=== PATIENT | male | born 1980 | race Caucasian/White ===

== ENCOUNTER 2019-02-08 10:32 | Emergency (ER) | payer MEDICAID ==
[~2019-02-08] VITALS: Ht 177.8 cm; Wt 127.0 kg
[2019-02-08 10:32] VITALS: BP_SYST 124
[2019-02-08 11:45] VITALS: BP_SYST 124
== END 2019-02-08 11:45 | disposition home or self-care (01) ==
LOC: SED 10:32
DX: H66.91 Otitis media, unspecified, right ear (principal); J02.9 Acute pharyngitis, unspecified; R51 Headache; E11.9 Type 2 diabetes mellitus without complications; R03.0 Elevated blood-pressure reading, without diagnosis of hypertension; Z90.89 Acquired absence of other organs
CPT/HCPCS: 99283

== ENCOUNTER 2019-06-09 04:27 | Emergency (ER) | payer SELFPAY ==
[~2019-06-09] VITALS: Ht 177.8 cm; Wt 131.5 kg
[2019-06-09 04:44] VITALS: BP_SYST 137
--- NOTE | 2019-06-09 04:44 | NUR ---
Patient to ER [facility] for evaluation. Side rails up. Report given to ROSMERY Sweeney.
--- NOTE | 2019-06-09 05:25 | NUR ---
Pt oserved lwbs.
--- NOTE | 2019-06-09 05:30 | NUR ---
Looked for patient in ER bathroom, hallway, lobby, and entrance, patient not found. MD aware.
--- NOTE | 2019-06-09 05:35 | NUR ---
Looked for patient in ER bathroom, hallway, lobby, and entrance, patient not found. MD aware.
== END 2019-06-09 05:35 | disposition left against medical advice (07) ==
LOC: SED 04:27
DX: J02.9 Acute pharyngitis, unspecified (principal); Z53.21 Procedure and treatment not carried out due to patient leaving prior to being seen by health care provider

== ENCOUNTER 2019-06-28 11:20 | Emergency (ER) | payer SELFPAY ==
[~2019-06-28] VITALS: Ht 177.8 cm; Wt 131.5 kg
[2019-06-28 11:20] VITALS: BP_SYST 158
--- NOTE | 2019-06-28 11:20 | NUR ---
BROUGHT BACK TO BED #7 AND TRIAGED. REPORT GIVEN TO RABIA
--- NOTE | 2019-06-28 11:59 | NUR ---
MISAEL Noyola at bedside examining patient.
[2019-06-28 12:45] VITALS: BP_SYST 143
--- NOTE | 2019-06-28 12:45 | NUR ---
Patient given written and verbal discharge instructions and verbalizes understanding. ER MD Noyola discussed with patient the results and treatment provided. Patient in stable condition. ID arm band removed. IV catheter removed intact and dressing applied, no active bleeding. Rx of Azithromycin, Tessalon Perles, Ibuprofen given. Patient educated on pain management and to follow up with PMD. Pain Scale 0. Opportunity for questions provided and answered. Medication side effect fact sheet provided.
== END 2019-06-28 12:45 | disposition home or self-care (01) ==
LOC: SED 11:20
DX: S63.616A Unspecified sprain of right little finger, initial encounter (principal); J02.9 Acute pharyngitis, unspecified; E11.9 Type 2 diabetes mellitus without complications; W20.8XXA Other cause of strike by thrown, projected or falling object, initial encounter; Y93.89 Activity, other specified; Y92.89 Other specified places as the place of occurrence of the external cause; Y99.8 Other external cause status
CPT/HCPCS: 99283

== ENCOUNTER 2019-07-20 11:41 | Emergency (ER) | payer MEDICAID ==
[~2019-07-20] VITALS: Ht 177.8 cm; Wt 131.5 kg
--- NOTE | 2019-07-20 11:42 | NUR ---
plPatient to ER bed 04 to gown for evaluation. Side rails up.
--- NOTE | 2019-07-20 11:43 | NUR ---
Pt brought by family member , ambulatory , A&Ox4, pt c/o sore throat and dysphagia for couple days, pt states he is taking antibiotics but pain not improving , skin pink and warm, afebrile, no N/V noted, will continue to monitor.
--- NOTE | 2019-07-20 12:00 | NUR ---
ER at bedside examining patient.
[2019-07-20 12:01] VITALS: BP_SYST 150
[2019-07-20 13:48] VITALS: BP_SYST 150
--- NOTE | 2019-07-20 13:49 | NUR ---
Patient given written and verbal discharge instructions and verbalizes understanding. ER MD discussed with patient the results and treatment provided. Patient in stable condition. ID arm band removed. Rx of Sudafed and Benadryl given. Patient educated on pain management and to follow up with PMD. Pain Scale 0/10 Opportunity for questions provided and answered. Medication side effect fact sheet provided.
== END 2019-07-20 13:49 | disposition home or self-care (01) ==
LOC: SED 11:41
DX: J30.9 Allergic rhinitis, unspecified (principal); E11.9 Type 2 diabetes mellitus without complications
CPT/HCPCS: 99282

== ENCOUNTER 2019-08-19 11:07 | Emergency (ER) | payer MEDICAID ==
[~2019-08-19] VITALS: Ht 177.8 cm; Wt 131.5 kg
[2019-08-19 11:13] VITALS: BP_SYST 156
== END 2019-08-19 12:59 | disposition left against medical advice (07) ==
LOC: SED 11:07
DX: R05 Cough (principal); Z53.21 Procedure and treatment not carried out due to patient leaving prior to being seen by health care provider

== ENCOUNTER 2019-10-05 01:08 | Emergency (ER) | payer MEDICAID ==
[~2019-10-05] VITALS: Ht 177.8 cm; Wt 131.5 kg
[2019-10-05 01:16] VITALS: BP_SYST 179
[2019-10-05] MEDS ORDERED: LORazepam 2 MG/ML VIAL IM ONE (01:30)
[2019-10-05 01:51] LABS: BASOPHILS % (AUTO) 0.5 % (0.0-2.0); EOSINOPHILS # (AUTO) 0.4 K/uL (0.0-0.4); EOSINOPHILS % (AUTO) 5.3 % (0.0-4.0); HEMATOCRIT 41.1 % (36-54); HEMOGLOBIN 14.3 g/dL (14.0-18.0); LYMPHOCYTES # (AUTO) 2.4 K/uL (1.0-5.5); MEAN CORPUSCULAR HEMOGLOBIN 29 pg (27-31); MEAN CORPUSCULAR HGB CONC 35 % (32-36); MEAN CORPUSCULAR VOLUME 84 fL (79.0-98.0); MONOCYTES # (AUTO) 0.6 K/uL (0.0-1.0); MONOCYTES % (AUTO) 6.9 % (1.7-9.3); NEUTROPHILS # (AUTO) 4.7 K/uL (1.8-7.7); NEUTROPHILS % (AUTO) 58.3 % (40.0-70.0); PLATELET COUNT (AUTO) 226 K/uL (130-430); RED BLOOD CELL COUNT(AUTO) 4.87 MIL/uL (4.2-6.2); WHITE BLOOD COUNT (AUTO) 8.1 K/uL (4.8-10.8)
[2019-10-05 02:01] LABS: ANION GAP 12 (5-15); CALCIUM 8.2 mg/dL (8.4-11.0); CHLORIDE 97 mmol/L (98-107); CREATININE 1.38 mg/dL (0.55-1.30); GLUCOSE 312 mg/dL (70-99); POTASSIUM 3.8 mmol/L (3.5-5.1); SODIUM SERUM 133 mmol/L (136-145); UREA NITROGEN, BLOOD 21 mg/dL (8-21)
[2019-10-05 02:08] LABS: ALANINE AMINOTRANSFERASE 85 U/L (12-78); ALBUMIN 3.8 g/dL (3.4-4.8); ASPARTATE AMINOTRANSFERASE 34 U/L (10-37); LIPASE 207 U/L (73-393); TOTAL BILIRUBIN 0.4 mg/dL (0.0-1.0)
[2019-10-05 02:10] LABS: GFR AFRICAN AMERICAN 74 mL/min (>90)
[2019-10-05 03:15] VITALS: BP_SYST 153
== END 2019-10-05 03:15 | disposition home or self-care (01) ==
LOC: SED 01:08
DX: R07.9 Chest pain, unspecified (principal); F41.9 Anxiety disorder, unspecified; E78.00 Pure hypercholesterolemia, unspecified
CPT/HCPCS: 36415; 71045; 80053; 83690; 84484; 85025; 85379; 93005; 96372; 99284; J2060

== ENCOUNTER 2020-04-25 03:12 | Emergency (ER) | payer SELFPAY ==
[~2020-04-25] VITALS: Ht 177.8 cm; Wt 128.8 kg
[2020-04-25 03:50] VITALS: BP_SYST 141
--- NOTE | 2020-04-25 03:50 | NUR ---
Patient to ER bed 2 to gown for evaluation. Side rails up.
--- NOTE | 2020-04-25 03:51 | NUR ---
Patient came to ER. C/O Right side pain x today. Patient states "fell and hit the edge of the bed one hour ago." Denies head injury A/O,X4, right side pain, pain rate 10/10.
--- NOTE | 2020-04-25 04:02 | NUR ---
ER at bedside examining patient.
[2020-04-25] MEDS ORDERED: CYCLOBENZAPRINE HCL 10 MG TABLET (FLEXERIL) PO ONE (04:15)
[2020-04-25] MEDS ORDERED: IBUPROFEN 800 MG TABLET PO ONE (04:15)
--- NOTE | 2020-04-25 04:21 | NUR ---
BS 177, Dr. Thompson notified.
--- NOTE | 2020-04-25 04:35 | NUR ---
Patient came back from X-ray room.
[2020-04-25 04:48] LABS: BILIRUBIN,URINE NEGATIVE (NEGATIVE); BLOOD, URINE NEGATIVE (NEGATIVE); CLARITY/URINE CLEAR (CLEAR); COLOR,URINE YELLOW (YELLOW); GLUCOSE,URINE NEGATIVE (NEGATIVE); KETONES,URINE NEGATIVE (NEGATIVE); LEUKOCYTE ESTERASE ,URINE NEGATIVE (NEGATIVE); NITRITE, URINE NEGATIVE (NEGATIVE); PH,URINE 5.5 (5.0-8.0); PROTEIN URINE NEGATIVE (NEGATIVE); UROBILINOGEN,URINE 0.2 (0.2-1.0)
[2020-04-25 05:24] VITALS: BP_SYST 141
--- NOTE | 2020-04-25 05:24 | NUR ---
Patient given written and verbal discharge instructions and verbalizes understanding. ER MD discussed with patient the results and treatment provided. Patient in stable condition. ID arm band removed. Rx of Motrin and Flexeril given. Patient educated on pain management and to follow up with PMD. Pain Scale 2/10. Opportunity for questions provided and answered. Medication side effect fact sheet provided.
== END 2020-04-25 05:24 | disposition home or self-care (01) ==
LOC: SED 03:12
DX: S20.221A Contusion of right back wall of thorax, initial encounter (principal); R07.89 Other chest pain; E11.9 Type 2 diabetes mellitus without complications; Z88.1 Allergy status to other antibiotic agents; W18.39XA Other fall on same level, initial encounter; Y93.01 Activity, walking, marching and hiking; Y92.89 Other specified places as the place of occurrence of the external cause; Y99.8 Other external cause status
CPT/HCPCS: 71045; 71100; 81003; 82962; 99284

== ENCOUNTER 2020-05-21 14:55 | Emergency (ER) | payer MEDICAID ==
[~2020-05-21] VITALS: Ht 177.8 cm; Wt 136.1 kg
[2020-05-21 14:55] VITALS: BP_SYST 148
--- NOTE | 2020-05-21 14:55 | NUR ---
Placed in room 5. Placed on cardiac exercise specialist, blood pressure machine and pulse oximeter. To gown for exam. Side rails up. Report given to ROSMERY Matthews.
--- NOTE | 2020-05-21 15:00 | NUR ---
pt in gurney with side rails up. Alert and oriented. Skin warm and dry. C/O left side upper chest wall pain.
[2020-05-21] MEDS ORDERED: KETOROLAC TROMETHAMINE 30 MG VIAL IVP ONE (15:15)
[2020-05-21 15:40] LABS: BASOPHILS % (AUTO) 0.3 % (0.0-2.0); EOSINOPHILS # (AUTO) 0.4 K/uL (0.0-0.4); EOSINOPHILS % (AUTO) 4.6 % (0.0-4.0); HEMATOCRIT 46.4 % (36-54); HEMOGLOBIN 15.1 g/dL (14.0-18.0); LYMPHOCYTES # (AUTO) 1.6 K/uL (1.0-5.5); LYMPHOCYTES % (AUTO) 17.7 % (20.5-51.5); MEAN CORPUSCULAR HEMOGLOBIN 28 pg (27-31); MEAN CORPUSCULAR HGB CONC 33 % (32-36); MEAN CORPUSCULAR VOLUME 84 fL (79.0-98.0); MONOCYTES # (AUTO) 0.6 K/uL (0.0-1.0); MONOCYTES % (AUTO) 6.5 % (1.7-9.3); NEUTROPHILS # (AUTO) 6.2 K/uL (1.8-7.7); NEUTROPHILS % (AUTO) 70.9 % (40.0-70.0); PLATELET COUNT (AUTO) 256 K/uL (130-430); RED CELL DISTRIBUTION WIDTH 13.7 % (9.0-15.0); WHITE BLOOD COUNT (AUTO) 8.8 K/uL (4.8-10.8)
--- NOTE | 2020-05-21 15:57 | NUR ---
pt medicated with good effect for pain. Cont to be monitored. VSS
[2020-05-21 16:04] LABS: CALCIUM 9.7 mg/dL (8.4-11.0); CREATININE 1.36 mg/dL (0.55-1.30); POTASSIUM 4.5 mmol/L (3.5-5.1)
[2020-05-21 16:10] LABS: ALBUMIN 3.8 g/dL (3.4-4.8); TOTAL BILIRUBIN 0.3 mg/dL (0.0-1.0)
--- NOTE | 2020-05-21 16:20 | NUR ---
pt denies any pain. 0/10
--- NOTE | 2020-05-21 16:27 | NUR ---
Patient given written and verbal discharge instructions and verbalizes understanding. ER MD discussed with patient the results and treatment provided. Patient in stable condition. ID arm band removed. IV catheter removed intact and dressing applied, no active bleeding. Rx of naproxen and tramadol given. Patient educated on pain management and to follow up with PMD. Pain Scale 0/10. Opportunity for questions provided and answered. Medication side effect fact sheet provided.
[2020-05-21 16:28] VITALS: BP_SYST 125
== END 2020-05-21 16:36 | disposition home or self-care (01) ==
LOC: SED 14:55
DX: R07.89 Other chest pain (principal); I10 Essential (primary) hypertension; E11.9 Type 2 diabetes mellitus without complications; Z88.1 Allergy status to other antibiotic agents
CPT/HCPCS: 36415; 71045; 80053; 82550; 83880; 84484; 85025; 93005; 96374; 99285; J1885

== ENCOUNTER 2020-07-23 12:35 | Emergency (ER) | payer SELFPAY ==
[~2020-07-23] VITALS: Ht 167.6 cm; Wt 113.4 kg
[2020-07-23 12:42] VITALS: BP_SYST 162
--- NOTE | 2020-07-23 12:45 | NUR ---
EKG done during triage
[2020-07-23 13:06] LABS: BASOPHILS % (AUTO) 0.4 % (0.0-2.0); EOSINOPHILS # (AUTO) 0.3 K/uL (0.0-0.4); EOSINOPHILS % (AUTO) 4.4 % (0.0-4.0); HEMATOCRIT 41.1 % (36-54); LYMPHOCYTES # (AUTO) 1.4 K/uL (1.0-5.5); LYMPHOCYTES % (AUTO) 22.5 % (20.5-51.5); MEAN CORPUSCULAR HEMOGLOBIN 28 pg (27-31); MEAN CORPUSCULAR HGB CONC 34 % (32-36); MEAN CORPUSCULAR VOLUME 84 fL (79.0-98.0); MONOCYTES # (AUTO) 0.4 K/uL (0.0-1.0); MONOCYTES % (AUTO) 6.7 % (1.7-9.3); NEUTROPHILS # (AUTO) 4.1 K/uL (1.8-7.7); PLATELET COUNT (AUTO) 224 K/uL (130-430); RED BLOOD CELL COUNT(AUTO) 4.92 MIL/uL (4.2-6.2); RED CELL DISTRIBUTION WIDTH 13.9 % (9.0-15.0); WHITE BLOOD COUNT (AUTO) 6.3 K/uL (4.8-10.8)
[2020-07-23 13:20] LABS: CALCIUM 9.5 mg/dL (8.4-11.0); CREATININE 1.38 mg/dL (0.55-1.30); POTASSIUM 5.1 mmol/L (3.5-5.1)
[2020-07-23 13:25] LABS: ALBUMIN 3.8 g/dL (3.4-4.8); TOTAL BILIRUBIN 0.2 mg/dL (0.0-1.0)
--- NOTE | 2020-07-23 13:48 | NUR ---
Placed in room 03 . Placed on panel monitor, blood pressure machine and pulse oximeter. To gown for exam. Side rails up.
--- NOTE | 2020-07-23 13:49 | NUR ---
Pt brought by self, A&Ox4, pt presents to ER with intermittent chest pain since last night, denies cough or SOB, skin pink and warm , respirations even and unlabored, cap refill <3.
--- NOTE | 2020-07-23 13:55 | NUR ---
Dr Deng evaluating patient at bedside
--- NOTE | 2020-07-23 14:00 | NUR ---
x-ray at the bedside
[2020-07-23 14:31] VITALS: BP_SYST 162
--- NOTE | 2020-07-23 14:32 | NUR ---
Patient given written and verbal discharge instructions and verbalizes understanding. ER MD discussed with patient the results and treatment provided. Patient in stable condition. ID arm band removed. Rx of Aspirin given. Patient educated on pain management and to follow up with PMD. Pain Scale 0/10. Opportunity for questions provided and answered. Medication side effect fact sheet provided.
== END 2020-07-23 14:32 | disposition home or self-care (01) ==
LOC: SED 12:35
DX: R07.89 Other chest pain (principal); I10 Essential (primary) hypertension; E11.9 Type 2 diabetes mellitus without complications; Z88.1 Allergy status to other antibiotic agents
CPT/HCPCS: 36415; 71045; 80053; 83690-TC; 84484; 85025; 93005; 99285

== ENCOUNTER 2020-08-07 21:45 | Emergency (ER) | payer SELFPAY ==
[~2020-08-07] VITALS: Ht 177.8 cm; Wt 127.0 kg
[2020-08-07 21:50] VITALS: BP_SYST 160
--- NOTE | 2020-08-07 22:08 | NUR ---
Patient to ER bed 1 to gown for evaluation. Side rails up. Report given to LALO BOTELLO.
--- NOTE | 2020-08-07 22:30 | NUR ---
PT A&O X4 FROM HOME C/O OF SORE THROAT THAT STARTED THIS AFTERNOON. PT STATES HE EXPERIENCES DISCOMFORT WHEN SWALLOWING BUT DENIES DIFFICULTY SWALLOWING. PTS THROAT APPEARS RED AND MILDLY SWOLLEN. PT DENIES COUGH, FEVER, CHILLS, NAUSEA, VOMITING, SOB, MUSCLE/BODY ACHES.
--- NOTE | 2020-08-07 23:10 | NUR ---
ER Dr. GAO at bedside examining patient.
--- NOTE | 2020-08-07 23:24 | NUR ---
STREP SWAB COLLECTED AND SENT TO LAB.
[2020-08-08 00:25] VITALS: BP_SYST 133
--- NOTE | 2020-08-08 00:25 | NUR ---
Patient given written and verbal discharge instructions and verbalizes understanding. ER MD discussed with patient the results and treatment provided. Patient in stable condition. ID arm band removed. nO Rx given. Patient educated on pain management and to follow up with PMD. Pain Scale 2/10. Opportunity for questions provided and answered. Medication side effect fact sheet provided.
== END 2020-08-08 00:25 | disposition home or self-care (01) ==
LOC: SED 21:45
DX: J02.9 Acute pharyngitis, unspecified (principal); I10 Essential (primary) hypertension; E11.9 Type 2 diabetes mellitus without complications; E78.5 Hyperlipidemia, unspecified; Z88.1 Allergy status to other antibiotic agents; Z79.899 Other long term (current) drug therapy
CPT/HCPCS: 36415; 86403; 87081; 96375; 96376; 99283

== ENCOUNTER 2020-08-13 15:12 | Inpatient (IN) | payer SELFPAY ==
[~2020-08-13] VITALS: Ht 177.8 cm; Wt 126.6 kg
--- NOTE | 2020-08-13 15:14 | NUR ---
Patient to ER bed 03 to gown for evaluation. Side rails up.
--- NOTE | 2020-08-13 15:16 | NUR ---
Patient arrived in the ED c/o chest pain that's been on and off for a while. Denied any shortness of breath. Denied any fevers, chills, nausea or vomiting. Patient is alert and oriented x4, respirations even and unlabored, speaking in full sentences, and ambulating with a steady gait. VSS, pain level 7/10. Informed of the approximate wait time. Instructed to notify ED staff for any changes in condition or worsening of symptoms while waiting to be seen by an ED provider. Patient verbalized understanding.
--- NOTE | 2020-08-13 15:20 | NUR ---
ECG done at bedside as ordered by Dr. Wiggins. Patient tolerated the procedure well. ER Physician given copy of EKG for review.
[2020-08-13 15:25] VITALS: BP_SYST 153
--- NOTE | 2020-08-13 15:38 | NUR ---
ER Dr. Jain at bedside examining patient.
[2020-08-13] MEDS ORDERED: MORPHINE 4 MG/ML INJ. SYRINGE IVP ONE (15:48)
[2020-08-13] MEDS ORDERED: NITROGLYCERIN 1 INCH (GM) OINT. TP ONE (15:48)
[2020-08-13 15:58] LABS: BASOPHILS % (AUTO) 0.3 % (0.0-2.0); EOSINOPHILS # (AUTO) 0.4 K/uL (0.0-0.4); EOSINOPHILS % (AUTO) 4.1 % (0.0-4.0); HEMATOCRIT 44.2 % (36-54); HEMOGLOBIN 15.1 g/dL (14.0-18.0); LYMPHOCYTES # (AUTO) 1.5 K/uL (1.0-5.5); LYMPHOCYTES % (AUTO) 16.8 % (20.5-51.5); MEAN CORPUSCULAR HEMOGLOBIN 29 pg (27-31); MEAN CORPUSCULAR HGB CONC 34 % (32-36); MEAN CORPUSCULAR VOLUME 84 fL (79.0-98.0); MONOCYTES # (AUTO) 0.6 K/uL (0.0-1.0); MONOCYTES % (AUTO) 6.4 % (1.7-9.3); NEUTROPHILS # (AUTO) 6.3 K/uL (1.8-7.7); NEUTROPHILS % (AUTO) 72.4 % (40.0-70.0); PLATELET COUNT (AUTO) 263 K/uL (130-430); RED BLOOD CELL COUNT(AUTO) 5.24 MIL/uL (4.2-6.2); RED CELL DISTRIBUTION WIDTH 14.1 % (9.0-15.0); WHITE BLOOD COUNT (AUTO) 8.7 K/uL (4.8-10.8)
[2020-08-13 16:02] LABS: CREATININE 1.44 mg/dL (0.55-1.30); POTASSIUM 4.5 mmol/L (3.5-5.1)
[2020-08-13 16:07] LABS: TOTAL BILIRUBIN 0.2 mg/dL (0.0-1.0)
--- NOTE | 2020-08-13 16:16 | NUR ---
Administered Morphine Sulfate IVP and Nitro transdermal as ordered by Dr. Wiggins. Patient tolerated the medications well. See eMAR for details.
[2020-08-13 16:17] LABS: INR 0.9 (0.80-1.20); PROTHROMBIN TIME 9.4 SECS (9.5-12.5)
--- NOTE | 2020-08-13 16:50 | NUR ---
Patient will be admitted to care of Dr. Thomas. Admitted to telemetry unit. Will go to room 130B. Belongings list completed. Complete and up to date summary report printed. SBAR report to be given at bedside with opportunity for questions.
[2020-08-13] MEDS ORDERED: ZOLPIDEM TARTRATE 5 MG TABLET PO PRN (17:15)
[2020-08-13] MEDS ORDERED: LORazepam 2 MG/ML VIAL IVP PRN (17:15)
[2020-08-13] MEDS ORDERED: ACETAMINOPHEN 325 MG TABLET PO PRN (17:15)
[2020-08-13] MEDS ORDERED: NITROGLYCERIN 0.4 MG TAB.SUBL SL PRN (17:15)
[2020-08-13] MEDS ORDERED: MORPHINE 2 MG/ML INJ. SYRINGE IVP PRN (17:15)
[2020-08-13] MEDS ORDERED: PANTOPRAZOLE SODIUM 40 MG TAB PO ONE (17:30)
--- NOTE | 2020-08-13 18:17 | NUR ---
Patient will be admitted to care of DR. RANDLE. Admitted to TELE unit. Will go to room 119B. Belongings list completed. Complete and up to date summary report printed. SBAR report to be given at bedside with opportunity for questions.
[2020-08-13 18:45] VITALS: BP_SYST 160
--- NOTE | 2020-08-13 19:01 | NUR ---
ADMISSION NOTES. PT CAME FROM [facility] AT 1845, SITUATED IN BED, PT ADMITTED FOR CHEST PAIN UNDER DR RANDLE. VITALS TAKEN, BP IS AND HR ELEVATED. NO C/O OF CHEST PAIN AT THIS TIME. EDUCATED PT ON THE USE OF CALL LIGHT AND TV AND BED CONTROLS. WILL ENDORSE TO NIGHT NURSE.
--- NOTE | 2020-08-13 19:30 | NUR ---
Opening notes Received report. Patient is resting in bed, no signs of distress noted. Breathing even and unlabored on room air. Patient states pain is better, but still has discomfort/numbness to left chest/arm. IV paten and intact, no signs of infiltration noted. Oriented patient to room and call light. Call light with the patient. Safety precautions in place.
--- NOTE | 2020-08-13 19:48 | NUR ---
CLOSING NOTES, ENDORSED TO NIGHT NURSE LILY. PT STABLE.
[2020-08-13 20:00] VITALS: BP_SYST 133
--- NOTE | 2020-08-13 20:00 | NUR ---
Spoke to updated geovany about patient condition and plan of care. verbalized understanding. brought in belongings for patient. Updated patient belongings list.
[2020-08-13] MEDS: NACL 0.9% 1,000 ML IV SCH (20:53)
[2020-08-13] MEDS: METOPROLOL TARTRATE 25 MG TABLET PO SCH (20:54)
[2020-08-13 20:57] VITALS: BP_SYST 133
--- NOTE | 2020-08-13 21:00 | NUR ---
Medications given. Educated the action and side effects of Lopressor. Patient verbalized understanding and tolerated well. No other needs. Call light with the patient. Safety precautions in place.
[2020-08-13 21:01] LABS: BENZODIAZEPINE, URINE POSITIVE (NEG <=150); OPIATE, URINE POSITIVE (NEG <=100); URINE OXYCODONE SCREEN NEGATIVE (NEG <=100); URINE PROPOXYPHENE SCREEN NEGATIVE (NEG <=300)
[2020-08-13 21:02] LABS: BARBITURATE, URINE NEGATIVE (NEG <=200); CANNABINOID, URINE NEGATIVE (NEG <=50); COCAINE, URINE NEGATIVE (NEG <=150); METHAMPHETAMINES SCREEN,URINE NEGATIVE (NEG <=500); PHENCYCLIDINE SCREEN,URINE NEGATIVE (NEG <=25); UR TRICYCLIC ANTIDEPRESSANTS NEGATIVE (NEG <=300); URINE AMPHETAMINE NEGATIVE (NEG <=500); URINE METHADONE NEGATIVE (NEG <=200)
--- NOTE | 2020-08-13 23:30 | NUR ---
RN rounds Patient resting in bed, no signs of distress noted. Breathing even and unlabored. No complaints of chest pain. VSS. No needs. Call light with the patient. Safety precautions in place.
[2020-08-14 00:23] VITALS: BP_SYST 135
--- NOTE | 2020-08-14 02:00 | NUR ---
RN rounds Patient sleeping. No signs of distress noted. Breathing even and unlabored on room air. IVF infusing well. No needs. Call light with the patient. Safety precautions in place.
--- NOTE | 2020-08-14 02:52 | NUR ---
Consultation Paged Reason for Consultation: Chest Pain Was consult called: Y Person who who was notified: Angela Consulting Physician: Dr. Lopez Ordering Physician: Dr. Thomas
[2020-08-14] MEDS: NACL 0.9% 1,000 ML IV SCH (03:15)
--- NOTE | 2020-08-14 04:30 | NUR ---
RN rounds Patient awake and on phone. No signs of distress noted. Breathing even and unlabored on room air. No complaints of chest pain. IVF infusing well. Patient provided with sandwich and pudding. No other needs. Call light with the patient. Safety precautions in place.
[2020-08-14 06:31] LABS: BASOPHILS % (AUTO) 0.5 % (0.0-2.0); EOSINOPHILS # (AUTO) 0.4 K/uL (0.0-0.4); EOSINOPHILS % (AUTO) 5.1 % (0.0-4.0); HEMATOCRIT 40.2 % (36-54); HEMOGLOBIN 13.7 g/dL (14.0-18.0); LYMPHOCYTES # (AUTO) 1.8 K/uL (1.0-5.5); LYMPHOCYTES % (AUTO) 25.8 % (20.5-51.5); MEAN CORPUSCULAR HEMOGLOBIN 29 pg (27-31); MEAN CORPUSCULAR HGB CONC 34 % (32-36); MEAN CORPUSCULAR VOLUME 84 fL (79.0-98.0); MONOCYTES # (AUTO) 0.5 K/uL (0.0-1.0); MONOCYTES % (AUTO) 7.6 % (1.7-9.3); NEUTROPHILS # (AUTO) 4.3 K/uL (1.8-7.7); PLATELET COUNT (AUTO) 239 K/uL (130-430); RED BLOOD CELL COUNT(AUTO) 4.79 MIL/uL (4.2-6.2); RED CELL DISTRIBUTION WIDTH 13.7 % (9.0-15.0); WHITE BLOOD COUNT (AUTO) 7.1 K/uL (4.8-10.8)
[2020-08-14 06:42] LABS: CALCIUM 8.7 mg/dL (8.4-11.0); CREATININE 1.24 mg/dL (0.55-1.30); POTASSIUM 4.2 mmol/L (3.5-5.1)
--- NOTE | 2020-08-14 06:57 | NUR ---
Closing notes Patient is resting in bed, no signs of distress noted. Breathing even and unlabored on room air. Patient states chest discomfort/numbness has been on and off throughout night, but not as bad. IV patent and intact, infusing fluids. All needs met throughout the shift. Call light with the patient. Safety precautions in place. Will endorse care to day shift RN.
[2020-08-14 08:19] VITALS: BP_SYST 144
--- NOTE | 2020-08-14 08:20 | NUR ---
Opening note patient resting in bed, a/ox4, denies pain, no distress, assessment complete, IV line is patent and infusing well, educated patient on plan of care and call light system, he verbalized understanding, bed in lowest position, two side rails up, call light within reach, fall and aspiration precautions in place.
[2020-08-14] MEDS ORDERED: METO50TA7 PO (08:34)
[2020-08-14] MEDS ORDERED: ASPI-1393 PO (08:34)
[2020-08-14] MEDS ORDERED: ATORVASTATIN 20 MG TABLET PO SCH (09:00)
[2020-08-14] MEDS ORDERED: PANTOPRAZOLE SODIUM 40 MG TAB PO SCH (09:00)
[2020-08-14] MEDS ORDERED: ASPIRIN 81 MG TAB.CHEW PO SCH (09:00)
[2020-08-14] MEDS ORDERED: CLOPIDOGREL BISULFATE 75 MG TABLET PO SCH (09:00)
[2020-08-14] MEDS: METOPROLOL TARTRATE 25 MG TABLET PO SCH (09:08)
--- NOTE | 2020-08-14 09:10 | NUR ---
Medications patient resting in bed, awake, denies pain, educated on scheduled medications uses and potential side effects, he verbalized understanding and tolerated well, no other needs at this time, IV line is patent and infusing well, continuing to monitor, bed in lowest position, two side rails up, call light within reach, fall and aspiration precautions in place.
[2020-08-14 10:29] VITALS: BP_SYST 144
--- NOTE | 2020-08-14 10:35 | NUR ---
D/C Patient Patient given medication reconciliation form and D/C instructions. Exit Care provided. Patient verbalized understanding. MD discussed with patient the results and treatment provided. Ambulatory with steady gait for discharge to home. Patient in stable condition, ID band removed. IV catheter removed, intact and dressing applied, no active bleeding. E RX sent by Dr. Thomas for Metoprolol and ASA, patient made aware to bulk picker RX and when to start medication. Patient educated on pain management. All belongings sent with patient.
--- NOTE | 2020-08-14 11:59 | NUR ---
SS notes: GRAPPLER was referred by SS to see patient for self-pay. GRAPPLER attempted to meet with patient at bedside; pt is already discharged.
== END 2020-08-14 10:35 | disposition home or self-care (01) | DRG 205 ==
LOC: SED 15:12 → STU 16:48
PROVIDERS: ADMIT General Practice; ATTEND General Practice
DX: M94.0 Chondrocostal junction syndrome [Tietze] (principal); N17.0 Acute kidney failure with tubular necrosis; Z68.41 Body mass index [BMI] 40.0-44.9, adult; K21.9 Gastro-esophageal reflux disease without esophagitis; R07.89 Other chest pain; E11.9 Type 2 diabetes mellitus without complications; E66.01 Morbid (severe) obesity due to excess calories; F41.9 Anxiety disorder, unspecified; I10 Essential (primary) hypertension; Z20.828 Contact with and (suspected) exposure to other viral communicable diseases; Z90.49 Acquired absence of other specified parts of digestive tract; Z79.84 Long term (current) use of oral hypoglycemic drugs; Z79.899 Other long term (current) drug therapy; Z88.8 Allergy status to other drugs, medicaments and biological substances
CPT/HCPCS: 36415; 71045; 80048; 80053; 80061; 80307; 83735-TC; 83880; 84484; 85025; 85379; 85610-TC; 85730-TC; 93005; 93306; 96374; 99291; G0378; J2270; J7030

== ENCOUNTER 2020-08-28 20:14 | Emergency (ER) | payer SELFPAY ==
[~2020-08-28] VITALS: Ht 177.8 cm; Wt 126.1 kg
[~2020-08-28 20:14] MED LIST: ASPI-1393 PO; METO50TA7 PO
[2020-08-28 20:20] VITALS: BP_SYST 188
[2020-08-28] MEDS: ACETAMINOPHEN 500 MG TABLET PO ONE (21:00)
[2020-08-28 21:10] VITALS: BP_SYST 170
== END 2020-08-28 21:10 | disposition home or self-care (01) ==
LOC: SED 20:14
DX: I10 Essential (primary) hypertension (principal); E11.9 Type 2 diabetes mellitus without complications; Z79.82 Long term (current) use of aspirin; Z88.1 Allergy status to other antibiotic agents
CPT/HCPCS: 99283

== ENCOUNTER 2020-09-01 17:55 | Emergency (ER) | payer SELFPAY ==
[~2020-09-01] VITALS: Ht 177.8 cm; Wt 126.1 kg
[2020-09-01 18:00] VITALS: BP_SYST 158
--- NOTE | 2020-09-01 18:23 | NUR ---
[facility]
--- NOTE | 2020-09-01 18:38 | NUR ---
Patient came from home for evaluation of headache since Wednesday. He reports dizzines, nausea, twitch on left eyebrow.
--- NOTE | 2020-09-01 19:09 | NUR ---
All patient needs endorsed to ROSMERY Mccallum for continuation of care.
--- NOTE | 2020-09-01 19:32 | NUR ---
Called patient at lobby, patient no show at lobby.
== END 2020-09-01 19:32 | disposition left against medical advice (07) ==
LOC: SED 17:55
DX: R51.9 Headache, unspecified (principal); Z53.21 Procedure and treatment not carried out due to patient leaving prior to being seen by health care provider

== ENCOUNTER 2021-03-05 16:28 | Emergency (ER) | payer SELFPAY ==
[~2021-03-05] VITALS: Ht 177.8 cm; Wt 120.2 kg
[2021-03-05 16:28] VITALS: BP_SYST 121
[2021-03-05 17:15] LABS: BASOPHILS % (AUTO) 0.4 % (0.0-2.0); EOSINOPHILS # (AUTO) 0.2 K/uL (0.0-0.4); EOSINOPHILS % (AUTO) 2.1 % (0.0-4.0); HEMATOCRIT 43.9 % (36-54); HEMOGLOBIN 14.9 g/dL (14.0-18.0); LYMPHOCYTES % (AUTO) 21.5 % (20.5-51.5); MEAN CORPUSCULAR HEMOGLOBIN 28 pg (27-31); MEAN CORPUSCULAR HGB CONC 34 % (32-36); MEAN CORPUSCULAR VOLUME 83 fL (79.0-98.0); MONOCYTES # (AUTO) 0.6 K/uL (0.0-1.0); MONOCYTES % (AUTO) 6.5 % (1.7-9.3); NEUTROPHILS # (AUTO) 6.4 K/uL (1.8-7.7); NEUTROPHILS % (AUTO) 69.5 % (40.0-70.0); PLATELET COUNT (AUTO) 227 K/uL (130-430); RED BLOOD CELL COUNT(AUTO) 5.32 MIL/uL (4.2-6.2); RED CELL DISTRIBUTION WIDTH 13.6 % (9.0-15.0); WHITE BLOOD COUNT (AUTO) 9.2 K/uL (4.8-10.8)
[2021-03-05 17:33] LABS: ANION GAP 15 (5-15); CHLORIDE 102 mmol/L (98-107); CREATININE 2.36 mg/dL (0.55-1.30); GLUCOSE 151 mg/dL (70-99); POTASSIUM 3.4 mmol/L (3.5-5.1); SODIUM SERUM 139 mmol/L (136-145); UREA NITROGEN, BLOOD 27 mg/dL (8-21)
[2021-03-05 17:42] LABS: ALANINE AMINOTRANSFERASE 24 U/L (12-78); ALBUMIN 4.2 g/dL (3.4-4.8); ASPARTATE AMINOTRANSFERASE 16 U/L (10-37); GFR AFRICAN AMERICAN 39 mL/min (>90); LIPASE 124 U/L (73-393); TOTAL BILIRUBIN 0.8 mg/dL (0.0-1.0)
[2021-03-05] MEDS: NACL 0.9% 1,000 ML IV ONE (18:12)
[2021-03-05 18:47] VITALS: BP_SYST 115
== END 2021-03-05 18:48 | disposition home or self-care (01) ==
LOC: SED 16:28
DX: E86.0 Dehydration (principal); R00.2 Palpitations; I10 Essential (primary) hypertension; E11.9 Type 2 diabetes mellitus without complications; Z88.1 Allergy status to other antibiotic agents; Z79.82 Long term (current) use of aspirin; Z79.899 Other long term (current) drug therapy
CPT/HCPCS: 36415; 71045; 80053; 83690; 84484; 85025; 85379; 93005; 96360; 99285; J7030

== ENCOUNTER 2021-05-15 13:51 | Emergency (ER) | payer SELFPAY ==
[~2021-05-15] VITALS: Ht 177.8 cm; Wt 113.4 kg
[2021-05-15 13:51] VITALS: BP_SYST 135
== END 2021-05-15 19:40 | disposition left against medical advice (07) ==
LOC: SED 13:51
DX: F41.9 Anxiety disorder, unspecified (principal); Z53.21 Procedure and treatment not carried out due to patient leaving prior to being seen by health care provider
CPT/HCPCS: 71045; 93005

== ENCOUNTER 2021-06-06 13:02 | Emergency (ER) | payer SELFPAY ==
[~2021-06-06] VITALS: Ht 177.8 cm; Wt 113.4 kg
--- NOTE | 2021-06-06 13:16 | NUR ---
Pt triaged and placed in waiting room
[2021-06-06 13:17] VITALS: BP_SYST 147
--- NOTE | 2021-06-06 13:25 | NUR ---
Pt walked in to ER with c/o abdominal pain, 7/10 and bloating x1 week. Denies n/v, last BM this morning. V/S stable, no acute distress noted.
--- NOTE | 2021-06-06 13:39 | NUR ---
MISAEL Olmos examining THE patient.
[2021-06-06] MEDS ORDERED: FAMO40TA7 PO (13:50)
[2021-06-06 13:58] VITALS: BP_SYST 147
--- NOTE | 2021-06-06 14:00 | NUR ---
Patient given written and verbal discharge instructions and verbalizes understanding. ER MD discussed with patient the results and treatment provided. Patient in stable condition. ID arm band removed. Rx of Pepcid given. Patient educated on pain management and to follow up with PMD. Pain Scale 0. Opportunity for questions provided and answered. Medication side effect fact sheet provided.
== END 2021-06-06 14:00 | disposition home or self-care (01) ==
LOC: SED 13:02
DX: K25.9 Gastric ulcer, unspecified as acute or chronic, without hemorrhage or perforation (principal); I10 Essential (primary) hypertension; E11.9 Type 2 diabetes mellitus without complications; E78.00 Pure hypercholesterolemia, unspecified; Z88.1 Allergy status to other antibiotic agents; Z79.899 Other long term (current) drug therapy
CPT/HCPCS: 99283

== ENCOUNTER 2021-07-11 01:39 | Emergency (ER) | payer SELFPAY ==
[~2021-07-11] VITALS: Ht 177.8 cm; Wt 113.4 kg
[~2021-07-11 01:39] MED LIST changes: +FAMO40TA7 PO
[2021-07-11 01:50] VITALS: BP_SYST 150
--- NOTE | 2021-07-11 01:50 | NUR ---
Patient triaged and placed in the tent. VSS and patient appears in no acute distress at this time. Awaiting available bed, and MD notified of need for MSE.
--- NOTE | 2021-07-11 02:54 | NUR ---
MISAEL Barrera examining patient in the tent.
[2021-07-11] MEDS ORDERED: IBUPROFEN 100 MG/5 ML UDC PO ONE (03:15)
[2021-07-11] MEDS ORDERED: ACETAMINOPHEN 500 MG TABLET PO ONE (03:30)
--- NOTE | 2021-07-11 03:30 | NUR ---
Patient given written and verbal discharge instructions and verbalizes understanding. ER MD discussed with patient the results and treatment provided. Patient in stable condition. ID arm band removed. no Rx of given. Patient educated on pain management and to follow up with PMD. Pain Scale 5/10. Opportunity for questions provided and answered. Medication side effect fact sheet provided.
[2021-07-11 03:32] VITALS: BP_SYST 148
== END 2021-07-11 03:30 | disposition home or self-care (01) ==
LOC: SED 01:39
DX: J06.9 Acute upper respiratory infection, unspecified (principal); I10 Essential (primary) hypertension; E11.9 Type 2 diabetes mellitus without complications; E78.00 Pure hypercholesterolemia, unspecified; Z88.1 Allergy status to other antibiotic agents; Z79.82 Long term (current) use of aspirin; Z79.899 Other long term (current) drug therapy; Z20.822 Contact with and (suspected) exposure to COVID-19
CPT/HCPCS: 36415; 86710; 99283

== ENCOUNTER 2021-07-14 19:56 | Emergency (ER) | payer SELFPAY ==
[~2021-07-14] VITALS: Ht 177.8 cm; Wt 113.4 kg
[2021-07-14 20:00] VITALS: BP_SYST 143
[2021-07-14 20:59] LABS: CALCIUM 10.3 mg/dL (8.4-11.0); CREATININE 1.2 mg/dL (0.55-1.30); POTASSIUM 3.4 mmol/L (3.5-5.1)
[2021-07-14 21:04] LABS: ALBUMIN 4.2 g/dL (3.4-4.8); TOTAL BILIRUBIN 0.3 mg/dL (0.0-1.0)
[2021-07-14 21:39] LABS: BASOPHILS % (AUTO) 0.2 % (0.0-2.0); EOSINOPHILS # (AUTO) 0.3 K/uL (0.0-0.4); EOSINOPHILS % (AUTO) 2.7 % (0.0-4.0); HEMATOCRIT 44.2 % (36-54); HEMOGLOBIN 14.9 g/dL (14.0-18.0); LYMPHOCYTES # (AUTO) 2.5 K/uL (1.0-5.5); MEAN CORPUSCULAR HEMOGLOBIN 29 pg (27-31); MEAN CORPUSCULAR HGB CONC 34 % (32-36); MEAN CORPUSCULAR VOLUME 85 fL (79.0-98.0); MONOCYTES # (AUTO) 0.7 K/uL (0.0-1.0); MONOCYTES % (AUTO) 6.1 % (1.7-9.3); NEUTROPHILS # (AUTO) 7.8 K/uL (1.8-7.7); PLATELET COUNT (AUTO) 277 K/uL (130-430); RED BLOOD CELL COUNT(AUTO) 5.19 MIL/uL (4.2-6.2); RED CELL DISTRIBUTION WIDTH 13.2 % (9.0-15.0); WHITE BLOOD COUNT (AUTO) 11.3 K/uL (4.8-10.8)
[2021-07-15] MEDS ORDERED: PRED20TA PO (00:56)
[2021-07-15] MEDS ORDERED: ACET12.55 PO (00:56)
[2021-07-15 01:17] VITALS: BP_SYST 142
== END 2021-07-15 01:17 | disposition home or self-care (01) ==
LOC: SED 19:56
DX: M94.0 Chondrocostal junction syndrome [Tietze] (principal); I10 Essential (primary) hypertension; E11.9 Type 2 diabetes mellitus without complications; E78.00 Pure hypercholesterolemia, unspecified; Z88.1 Allergy status to other antibiotic agents; Z79.82 Long term (current) use of aspirin; Z79.899 Other long term (current) drug therapy
CPT/HCPCS: 36415; 71045; 80053; 84484; 85025; 93005; 99285

== ENCOUNTER 2023-04-19 17:02 | Emergency (ER) | payer MEDICAID ==
[~2023-04-19] VITALS: Ht 177.8 cm; Wt 108.9 kg
[~2023-04-19 17:02] MED LIST changes: +ACET12.55 PO; +PRED20TA PO
[2023-04-19 17:08] VITALS: BP_SYST 159; PULSE 81; RESP 18; TEMP 98.3; O2SAT 98
--- NOTE | 2023-04-19 17:24 | NUR ---
ER IN TRIAGE ROOM examining patient.
--- NOTE | 2023-04-19 17:30 | NUR ---
PATIENT BROUGHT IN COMPLAINING OF EPIGASTRIC PAIN RADIATING TO RUQ WITH NAUSEA. DENIES DIARRHEA, VOMITING, CONSTIPATION OR DIARRHEA.
[2023-04-19 18:20] LABS: BASOPHILS % (AUTO) 0.1 % (0.0-2.0); EOSINOPHILS # (AUTO) 0.1 K/uL (0.0-0.4); EOSINOPHILS % (AUTO) 1.6 % (0.0-4.0); HEMATOCRIT 44.7 % (36-54); HEMOGLOBIN 14.9 g/dL (14.0-18.0); LYMPHOCYTES # (AUTO) 1.4 K/uL (1.0-5.5); MEAN CORPUSCULAR HEMOGLOBIN 28 pg (27-31); MEAN CORPUSCULAR HGB CONC 33 % (32-36); MEAN CORPUSCULAR VOLUME 85 fL (79.0-98.0); MONOCYTES # (AUTO) 0.5 K/uL (0.0-1.0); MONOCYTES % (AUTO) 6.5 % (1.7-9.3); NEUTROPHILS # (AUTO) 5.7 K/uL (1.8-7.7); NEUTROPHILS % (AUTO) 73.8 % (40.0-70.0); PLATELET COUNT (AUTO) 201 K/uL (130-430); RED BLOOD CELL COUNT(AUTO) 5.25 MIL/uL (4.2-6.2); RED CELL DISTRIBUTION WIDTH 13.6 % (9.0-15.0); WHITE BLOOD COUNT (AUTO) 7.7 K/uL (4.8-10.8)
[2023-04-19 18:35] LABS: CALCIUM 8.6 mg/dL (8.4-11.0); CREATININE 1.26 mg/dL (0.55-1.30)
[2023-04-19 18:40] LABS: ALBUMIN 4.2 g/dL (3.4-4.8); TOTAL BILIRUBIN 0.6 mg/dL (0.0-1.0)
[2023-04-19] MEDS ORDERED: OMEPRAZOLE Non-Formulary 20 MG CAPSULE.DR PO ONE (19:00)
[2023-04-19 19:05] LABS: BILIRUBIN,URINE NEGATIVE (NEGATIVE); BLOOD, URINE NEGATIVE (NEGATIVE); CLARITY/URINE CLEAR (CLEAR); COLOR,URINE YELLOW (YELLOW); GLUCOSE,URINE NEGATIVE (NEGATIVE); KETONES,URINE NEGATIVE (NEGATIVE); LEUKOCYTE ESTERASE ,URINE NEGATIVE (NEGATIVE); NITRITE, URINE NEGATIVE (NEGATIVE); PROTEIN URINE NEGATIVE (NEGATIVE); UROBILINOGEN,URINE 0.2 (0.2-1.0)
[2023-04-19] MEDS ORDERED: PANTOPRAZOLE SODIUM 40 MG TAB PO ONE (19:15)
[2023-04-19] MEDS ORDERED: OMEP40CA20 PO (19:28)
[2023-04-19] MEDS ORDERED: ONDA-8 TL (19:28)
[2023-04-19 19:36] VITALS: BP_SYST 136; PULSE 72; RESP 17; TEMP 98.3; O2SAT 100
--- NOTE | 2023-04-19 19:36 | NUR ---
Patient given verbal discharge instructions and verbalizes understanding by MD. ER MD discussed with patient the results and treatment provided. Patient in stable condition. ID arm band removed. Rx of omeprazole and zofran given. Patient educated on pain management and to follow up with PMD. Pain Scale 0/10 Opportunity for questions provided and answered. Medication side effect fact sheet provided.
== END 2023-04-19 19:36 | disposition home or self-care (01) ==
LOC: SED 17:02
DX: K21.9 Gastro-esophageal reflux disease without esophagitis (principal); R10.13 Epigastric pain; R11.0 Nausea; E11.9 Type 2 diabetes mellitus without complications; I10 Essential (primary) hypertension; Z88.1 Allergy status to other antibiotic agents; Z79.899 Other long term (current) drug therapy
CPT/HCPCS: 36415; 76705; 80053; 81003; 83690; 85025; 99284